=== PATIENT | male | born 1985 | race African-American/Black ===

== ENCOUNTER 2018-10-27 18:06 | Emergency (ER) | payer SELFPAY ==
[2018-10-27] MEDS ORDERED: NORMAL SALINE 1000 ML 1,000 ML IV ONE (18:55)
[2018-10-27] MEDS ORDERED: KETOROLAC TROMETHAMINE INJ/PF 30 MG/1 ML SDV IV ONE ×2 (18:55→23:30)
--- NOTE | 2018-10-27 18:57 | ER Document Report ---
ED Medical Screen (RME) - General Chief Complaint: Urinary Problem Stated Complaint: FLANK PAIN Time Seen by Provider: 10/27/18 18:45 Notes: Patient is a 33-year-old male that presents to the emergency department for chief complaint of left flank pain, hematuria and dysuria. Patient reports having symptoms for a few days now, and they are not improving, describes having significant dysuria, denies urethral discharge but states the blood seems to be mixed with urine. ROS: Other than noted above, the 12 point review of systems was reviewed with the patient and were negative, all pertinent findings are included in the HPI. PHYSICAL EXAMINATION: Vital signs reviewed. GENERAL: Well-appearing, well-nourished and in no acute distress. HEAD: Atraumatic, normocephalic. EYES: Pupils equal round extraocular movements intact, conjunctiva are normal. ENT: Nares patent NECK: Normal range of motion CV: Heart regular rate and rhythm LUNGS: No respiratory distress Musculoskeletal: Normal range of motion NEUROLOGICAL: Normal speech PSYCH: Normal mood, normal affect. MDM: Patient seen and examined for rapid initial assessment. Vital signs reviewed. A comprehensive ED assessment and evaluation of the patient, analysis of test results and completion of the medical decision making process will be conducted by additional ED providers. *Note is created using voice recognition software and may contain spelling, syntax or grammatical errors. TRAVEL OUTSIDE OF THE [place] IN LAST 30 DAYS: No - Related Data Allergies/Adverse Reactions: No Known Allergies Allergy (Unverified 10/27/18 18:38) Past Medical History - Social History Chew tobacco use (# tins/day): No Frequency of alcohol use: Social Drug Abuse: Marijuana Renal/ Medical History: Denies: Hx Peritoneal Dialysis Physical Exam - Vital signs Vitals: Temp Pulse Resp BP Pulse Ox 99.5 F 86 16 139/71 H 100 10/27/18 18:38 10/27/18 18:38 10/27/18 18:38 10/27/18 18:38 10/27/18 18:38 Course - Vital Signs Vital signs: Temp Pulse Resp BP Pulse Ox 99.5 F 86 16 139/71 H 100 10/27/18 18:38 10/27/18 18:38 10/27/18 18:38 10/27/18 18:38 10/27/18 18:38
--- NOTE | 2018-10-27 20:16 | RADIOLOGY REPORT (SQ) ---
CT ABDOMEN PELVIS WITHOUT IV CONTRAST EXAM DATE: 10/27/2018 18:55 HISTORY: Left flank pain. Hematuria. COMPARISON: None. TECHNIQUE: CT scan of the abdomen and pelvis without IV contrast. This exam was performed according to our departmental dose-optimization program, which includes automated exposure control, adjustment of the mA and/or kV according to patient size and/or use of iterative reconstruction technique. FINDINGS: The lung bases are clear. No pleural or pericardial effusions. There is no hiatal hernia. The liver, spleen, pancreas, and adrenal glands are normal. The gallbladder is contracted, limiting evaluation. There are punctate bilateral nonobstructing renal stones. No hydronephrosis or obstructing stones are seen. The pelvic organs are normal. No small bowel obstruction. The appendix is normal. There is no evidence of diverticulitis. No intraperitoneal free fluid or free air is identified. The aorta is normal caliber. No acute osseous findings are appreciated. IMPRESSION: Punctate bilateral nonobstructing renal stones.
[2018-10-27 20:34] LABS: AMORPHOUS SEDIMENT,URINE TRACE /HPF; APPEARANCE,URINE CLOUDY; BILIRUBIN,URINE NEGATIVE (NEGATIVE); COLOR,URINE YELLOW; GLUCOSE, URINE NEGATIVE (NEGATIVE); KETONES,URINE NEGATIVE (NEGATIVE); LEUKOCYTE ESTERASE,URINE LARGE (NEGATIVE); NITRITE,URINE POSITIVE (NEGATIVE); PROTEIN,URINE 100 mg/dL (NEGATIVE); URINE SPECIFIC GRAVITY 1.023; UROBILINOGEN,URINE NEGATIVE mg/dL (<2.0)
[2018-10-27 23:56] LABS: ABSOLUTE EOSINOPHILS # (AUTO) 0.3 10^3/uL (0.0-0.6); ABSOLUTE LYMPHOCYTES (AUTO) 1.2 10^3/uL (0.5-4.7); ABSOLUTE MONOCYTES (AUTO) 0.6 10^3/uL (0.1-1.4); ABSOLUTE NEUT (AUTO) 5.9 10^3/uL (1.7-8.2); BASOPHILS % (AUTO) 0.6 % (0-2); EOSINOPHILS % (AUTO) 3.2 % (0-6); HEMATOCRIT 48.1 % (37.9-51.0); HEMOGLOBIN 16.4 g/dL (13.5-17.0); LYMPHOCYTES % (AUTO) 14.8 % (13-45); MEAN CORPUSCULAR HEMOGLOBIN 25.5 pg (27.0-33.4); MEAN CORPUSCULAR HGB CONC 34.1 g/dL (32.0-36.0); MEAN CORPUSCULAR VOLUME 75 fl (80-97); MONOCYTES % (AUTO) 7.5 % (3-13); PLATELET COUNT 120 10^3/uL (150-450); RED BLOOD COUNT 6.44 10^6/uL (4.35-5.55); RED CELL DISTRIBUTION WIDTH 13.4 % (11.5-14.0); SEGMENTED NEUTROPHILS % (AUTO) 73.9 % (42-78); TOTAL CELLS COUNTED % (AUTO) 100 %
[2018-10-28 00:13] LABS: ALANINE AMINOTRANSFERASE 38 U/L (21-72); ALBUMIN 4.4 g/dL (3.5-5.0); ALKALINE PHOSPHATASE 73 U/L (38-126); ANION GAP 12 (5-19); ASPARTATE AMINO TRANSFERASE 33 U/L (17-59); BILIRUBIN,DIRECT 0.2 mg/dL (0.0-0.4); BILIRUBIN,TOTAL 0.9 mg/dL (0.2-1.3); BLOOD UREA NITROGEN 12 mg/dL (7-20); CALCIUM 9.5 mg/dL (8.4-10.2); CARBON DIOXIDE 26 mmol/L (22-30); CHLORIDE 102 mmol/L (98-107); GLUCOSE 101 mg/dL (75-110); POTASSIUM 3.5 mmol/L (3.6-5.0); SODIUM 139.8 mmol/L (137-145); TOTAL PROTEIN 7.2 g/dL (6.3-8.2)
[2018-10-28] MEDS ORDERED: CEFTRIAXONE INJ 250 MG VIAL IM ONE (01:23)
[2018-10-28] MEDS ORDERED: AZITHROMYCIN 250 MG TABLET PO ONE (01:24)
[2018-10-28] MEDS ORDERED: CEPHALEXIN 500 MG CAPSULE PO ONE (01:24)
--- NOTE | 2018-10-28 01:31 | ER Document Report ---
ED GI/ - General Chief Complaint: Urinary Problem Stated Complaint: FLANK PAIN Time Seen by Provider: 10/27/18 18:45 Notes: Patient is a 33-year-old male presents to the emergency department for dysuria and penile discharge for the last 24 hours. Patient states he also has some generalized suprapubic tenderness. Patient's denying nausea, vomiting, diarrhea, fevers. Initially reported to the [facility] provider patient has a history of kidney stones and has bilateral flank pain. Patient is currently denying any flank or back pain. States he does not have a history of kidney stones. Past medical history: None Medications: None Allergies: None TRAVEL OUTSIDE OF THE [place] IN LAST 30 DAYS: No - Related Data Allergies/Adverse Reactions: No Known Allergies Allergy (Unverified 10/27/18 18:38) Past Medical History - General Information source: Patient - Social History Smoking Status: Current Every Day Smoker Chew tobacco use (# tins/day): No Frequency of alcohol use: Social Drug Abuse: Marijuana Family History: Reviewed & Not Pertinent Patient has suicidal ideation: No Patient has homicidal ideation: No Renal/ Medical History: Denies: Hx Peritoneal Dialysis Review of Systems - Review of Systems Constitutional: No symptoms reported EENT: No symptoms reported Cardiovascular: No symptoms reported Respiratory: No symptoms reported Gastrointestinal: See HPI Genitourinary: See HPI Male Genitourinary: See HPI Musculoskeletal: No symptoms reported Skin: No symptoms reported Hematologic/Lymphatic: No symptoms reported Neurological/Psychological: No symptoms reported Physical Exam - Vital signs Vitals: Temp Pulse Resp BP Pulse Ox 99.5 F 86 16 139/71 H 100 10/27/18 18:38 10/27/18 18:38 10/27/18 18:38 10/27/18 18:38 10/27/18 18:38 - Notes Notes: GENERAL: Alert, interacts well. No acute distress. HEAD: Normocephalic, atraumatic. EYES: Pupils equal, round, and reactive to light. Extraocular movements intact. ENT: Oral mucosa moist, tongue midline. NECK: Full range of motion. Supple. Trachea midline. LUNGS: Clear to auscultation bilaterally, no wheezes, rales, or rhonchi. No respiratory distress. HEART: Regular rate and rhythm. No murmur ABDOMEN: Soft, Non-distended. Bowel sounds present in all 4 quadrants. Minor suprapubic tenderness noted EXTREMITIES: Moves all 4 extremities spontaneously. No edema, normal radial and dorsalis pedis pulses bilaterally. No cyanosis. BACK: no cervical, thoracic, lumbar midline tenderness. No saddle anesthesia, normal distal neurovascular exam. No CVA tenderness noted bilaterally NEUROLOGICAL: Alert and oriented x3. Normal speech. cranial nerves II through XII grossly intact PSYCH: Normal affect, normal mood. SKIN: Warm, dry, normal turgor. No rashes or lesions noted. 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 Course - Re-evaluation Re-evalutation: 10/28/18 01:32 Patient's labs show no signs of leukocytosis, positive signs of urinary tract infection. Patient's gonorrhea and chlamydia are pending has been prophylactically treated in the emergency room. Patient CT abdomen pelvis was ordered by RME provider. Shows punctuate bilateral renal stones nonobstructing. Patient afebrile, non-tachycardic, stable for discharge. - Vital Signs Vital signs: Temp Pulse Resp BP Pulse Ox 98.0 F 76 16 157/85 H 97 10/28/18 00:26 10/28/18 00:26 10/28/18 00:26 10/28/18 00:26 10/28/18 00:26 - Laboratory Result Diagrams: 10/27/18 23:35 10/27/18 23:35 Laboratory results interpreted by me: 10/27/18 10/27/18 10/27/18 20:00 23:35 23:35 RBC 6.44 H MCV 75 L MCH 25.5 L Plt Count 120 L Potassium 3.5 L Urine Protein 100 H Urine Blood LARGE H Urine Nitrite POSITIVE H Ur Leukocyte Esterase LARGE H Discharge - Discharge Clinical Impression: Penile discharge Urinary tract infection Qualifiers: Urinary tract infection type: acute cystitis Hematuria presence: with hematuria Qualified Code(s): N30.01 - Acute cystitis with hematuria Condition: Stable Disposition: HOME, SELF-CARE Instructions: Urinary Tract Infection ([facility]), Gonorrhea ([facility]), Chlamydia ([facility]) Additional Instructions: You have been seen and treated in the emergency department for a urinary tract infection. You have also been prophylactically treated for gonorrhea and chlamydia due to your penile discharge. Please make sure you take antibiotics as prescribed. Please follow-up with medical records to get your gonorrhea and Chlamydia testing results. Please return to the emergency room for any other concerning symptoms. Prescriptions: Cephalexin Monohydrate [Keflex 500 mg Capsule] 500 mg PO BID 7 Days #14 capsule Referrals: [facility] ([place], [place]) [Provider Group] - Follow up as needed
[2018-10-28] MEDS ORDERED: PHENAZOPYRIDINE HCL 200 MG TABLET PO ONE (01:52)
[2018-10-28 02:01] LABS: CHLAM PCR NOT DETECTED (NOT DETECT); GON PCR NOT DETECTED (NOT DETECT)
[2018-10-28 02:04] VITALS: BP 159/96
== END 2018-10-28 02:03 | disposition home or self-care (01) ==
LOC: ER 18:06
DX: N30.01 Acute cystitis with hematuria (principal); R36.9 Urethral discharge, unspecified; N48.89 Other specified disorders of penis; F17.200 Nicotine dependence, unspecified, uncomplicated
CPT/HCPCS: 99284; 96372; 96361; 96374; 36415; 85025; 80053; 81001; 87491; 87591; 74176; J1885; J3490; J7030; J0696

== ENCOUNTER 2018-11-12 19:21 | Emergency (ER) | payer SELFPAY ==
--- NOTE | 2018-11-12 21:03 | ER Document Report ---
ED Medical Screen (RME) - General Chief Complaint: Pain With Urination Stated Complaint: PAINFUL URINATION Time Seen by Provider: 11/12/18 21:00 Mode of Arrival: Ambulatory Information source: Patient Notes: Patient presents to the emergency department with complaints of pain when he voids noted blood in his urine and lower abdominal pain. Patient reports he was treated for UTI 2 weeks ago when he was here. He denies testicular pain. He reports he was evaluated with STD check and CT. Denies nausea vomiting fever but reports some diarrhea I have greeted and performed a rapid initial assessment of this patient. A comprehensive ED assessment and evaluation of the patient, analysis of test results and completion of the medical decision making process will be conducted by additional ED providers. Dictation of this chart was performed using voice recognition software; therefore, there may be some unintended grammatical errors. TRAVEL OUTSIDE OF THE [place] IN LAST 30 DAYS: No - Related Data Allergies/Adverse Reactions: No Known Allergies Allergy (Verified 11/12/18 19:25) Past Medical History - Social History Chew tobacco use (# tins/day): No Frequency of alcohol use: Social Drug Abuse: Marijuana Renal/ Medical History: Denies: Hx Peritoneal Dialysis Physical Exam - Vital signs Vitals: Temp Pulse Resp BP Pulse Ox 99.3 F 105 H 16 134/76 H 93 11/12/18 19:34 11/12/18 19:34 11/12/18 19:34 11/12/18 19:34 11/12/18 19:34 Course - Vital Signs Vital signs: Temp Pulse Resp BP Pulse Ox 99.3 F 105 H 16 134/76 H 93 11/12/18 19:34 11/12/18 19:34 11/12/18 19:34 11/12/18 19:34 11/12/18 19:34
[2018-11-12 22:28] LABS: ABSOLUTE EOSINOPHILS # (AUTO) 0.2 10^3/uL (0.0-0.6); ABSOLUTE LYMPHOCYTES (AUTO) 0.9 10^3/uL (0.5-4.7); ABSOLUTE MONOCYTES (AUTO) 0.5 10^3/uL (0.1-1.4); ABSOLUTE NEUT (AUTO) 3.9 10^3/uL (1.7-8.2); BASOPHILS % (AUTO) 0.9 % (0-2); EOSINOPHILS % (AUTO) 3.4 % (0-6); HEMATOCRIT 47.4 % (37.9-51.0); HEMOGLOBIN 16.2 g/dL (13.5-17.0); LYMPHOCYTES % (AUTO) 16.7 % (13-45); MEAN CORPUSCULAR HEMOGLOBIN 25.7 pg (27.0-33.4); MEAN CORPUSCULAR HGB CONC 34.3 g/dL (32.0-36.0); MEAN CORPUSCULAR VOLUME 75 fl (80-97); MONOCYTES % (AUTO) 9.4 % (3-13); PLATELET COUNT 107 10^3/uL (150-450); RED BLOOD COUNT 6.31 10^6/uL (4.35-5.55); RED CELL DISTRIBUTION WIDTH 13.8 % (11.5-14.0); SEGMENTED NEUTROPHILS % (AUTO) 69.6 % (42-78); TOTAL CELLS COUNTED % (AUTO) 100 %; WHITE BLOOD COUNT 5.6 10^3/uL (4.0-10.5)
[2018-11-12 22:37] LABS: APPEARANCE,URINE CLOUDY; BILIRUBIN,URINE NEGATIVE (NEGATIVE); COLOR,URINE YELLOW; GLUCOSE, URINE NEGATIVE (NEGATIVE); KETONES,URINE NEGATIVE (NEGATIVE); LEUKOCYTE ESTERASE,URINE LARGE (NEGATIVE); NITRITE,URINE NEGATIVE (NEGATIVE); PROTEIN,URINE 100 mg/dL (NEGATIVE); URINE SPECIFIC GRAVITY 1.015; UROBILINOGEN,URINE NEGATIVE mg/dL (<2.0)
[2018-11-12 22:44] LABS: ALANINE AMINOTRANSFERASE 42 U/L (21-72); ALBUMIN 4.5 g/dL (3.5-5.0); ALKALINE PHOSPHATASE 71 U/L (38-126); ANION GAP 10 (5-19); ASPARTATE AMINO TRANSFERASE 31 U/L (17-59); BILIRUBIN,DIRECT 0.2 mg/dL (0.0-0.4); BILIRUBIN,TOTAL 0.7 mg/dL (0.2-1.3); BLOOD UREA NITROGEN 13 mg/dL (7-20); CALCIUM 9.9 mg/dL (8.4-10.2); CARBON DIOXIDE 27 mmol/L (22-30); CHLORIDE 104 mmol/L (98-107); GLUCOSE 91 mg/dL (75-110); POTASSIUM 4.1 mmol/L (3.6-5.0); SODIUM 140.9 mmol/L (137-145); TOTAL PROTEIN 7.4 g/dL (6.3-8.2)
[2018-11-12 23:56] LABS: CHLAM PCR NOT DETECTED (NOT DETECT); GON PCR NOT DETECTED (NOT DETECT)
--- NOTE | 2018-11-13 02:00 | ER Document Report ---
ED General - General Chief Complaint: Pain With Urination Stated Complaint: PAINFUL URINATION Time Seen by Provider: 11/13/18 02:00 Primary Care Provider: BRENDA LOWE MD [NO LOCAL MD] - Follow up as needed Mode of Arrival: Ambulatory Information source: Patient Notes: HISTORY OF PRESENT ILLNESS: Patient is a 33-year-old male with a past medical history of urinary tract infection less than 1 month ago who presents with recurrent dysuria that began several days ago that he reports is identical to his previous symptoms. He denies penile discharge, also denies known history of gonorrhea or chlamydia. Location: Genital Onset: 3-4 days ago Provocation: Relation Quality: Burning Radiation: None Severity: Mild Timing: Intermittent Associated symptoms: No fevers or chills, no pain or swelling of the penis, no lesions or rashes REVIEW OF SYSTEMS: CONSTITUTIONAL : Denies fever or chills, no sweats. Denies recent illness. EENT: Denies eye, ear, throat, or mouth pain or symptoms. Denies nasal or sinus congestion. CARDIOVASCULAR: Denies chest pain. RESPIRATORY: Denies cough, cold, or chest congestion. Denies shortness of breath, difficulty breathing, or wheezing. GASTROINTESTINAL: Denies abdominal pain. Denies nausea, vomiting, or diarrhea. Denies constipation. GENITOURINARY: Positive for painful urination/burning. Denies increased frequen cy or hematuria. MUSCULOSKELETAL: Denies neck or back pain or joint pain or swelling. SKIN: Denies rash or skin lesions. HEMATOLOGIC : Denies easy bruising or bleeding. LYMPHATIC: Denies swollen, enlarged glands. NEUROLOGICAL: Denies altered mental status or loss of consciousness. Denies headache. Denies weakness or paralysis or loss of use of either side. Denies problems with gait or speech. Denies sensory or motor loss. PSYCHIATRIC: Denies anxiety or stress or depression. All other systems reviewed and negative. PHYSICAL EXAMINATION: GENERAL: Well-appearing, well-nourished and in no acute distress. HEAD: Atraumatic, normocephalic. No scalp deformity, depression, or crepitance. EYES: Pupils are 3 mm and equal/round/reactive to light, extraocular movements intact, sclera anicteric, conjunctiva are normal. ENT: Nares patent bilaterally, oropharynx clear without exudates or palatal petechia. Moist mucous membranes. No tonsil hypertrophy. NECK: Normal range of motion, supple without lymphadenopathy. LUNGS: Breath sounds present, equal, and clear to auscultation bilaterally. No wheezes, rales, or rhonchi. HEART: Regular rate and rhythm without murmurs, rubs, or gallops. 2+ peripheral pulses. Normal capillary refill. ABDOMEN: Soft, nontender, nondistended. Normoactive bowel sounds. No guarding, no rebound. No masses appreciated. BACK: Normal contour, no midline tenderness. Rectal exam deferred. GENITAL: Deferred. EXTREMITIES: Normal range of motion, no pitting or edema. No cyanosis. NEUROLOGICAL: No focal neurological deficits. Moves all extremities sponta neously and on command. PSYCH: Normal mood, normal affect. No suicidal thoughts/ideations. No homi cidal thoughts/ideations. No hallucinations. SKIN: Warm, dry, normal turgor, no rashes or lesions noted. ASSESSMENT AND PLAN: This patient is a 33-year-old male who presents with recurrent episodes of dysuria that could represent recurrent urinary tract infection but also sexually transmitted infection. 1. Urine is positive for nitrite negative UTI, chlamydia/gonorrhea is negative. 2. Will give oral Bactrim and discharged home with return precautions and follow-up with urology. Patient voices both understanding and agreeing with the plan. TRAVEL OUTSIDE OF THE [place] IN LAST 30 DAYS: No - Related Data Allergies/Adverse Reactions: No Known Allergies Allergy (Verified 11/12/18 19:25) Past Medical History - General Information source: Patient - Social History Smoking Status: Current Every Day Smoker Chew tobacco use (# tins/day): No Frequency of alcohol use: Social Drug Abuse: Marijuana Family History: Reviewed & Not Pertinent Patient has suicidal ideation: No Patient has homicidal ideation: No - Past Medical History Cardiac Medical History: Reports: None Pulmonary Medical History: Reports: None EENT Medical History: Reports: None Neurological Medical History: Reports: None Endocrine Medical History: Reports: None Renal/ Medical History: Reports: Other - History of urinary tract infection. Denies: Hx Peritoneal Dialysis Malignancy Medical History: Reports None GI Medical History: Reports: None Musculoskeletal Medical History: Reports None Skin Medical History: Reports None Psychiatric Medical History: Reports: None Traumatic Medical History: Reports: None Infectious Medical History: Reports: None Surgical Hx: Negative Past Surgical History: Reports: None Physical Exam - Vital signs Vitals: Temp Pulse Resp BP Pulse Ox 99.3 F 105 H 16 134/76 H 93 11/12/18 19:34 11/12/18 19:34 11/12/18 19:34 11/12/18 19:34 11/12/18 19:34 Course - Vital Signs Vital signs: Temp Pulse Resp BP Pulse Ox 98.5 F 62 18 134/93 H 100 11/13/18 03:00 11/13/18 03:00 11/13/18 03:00 11/13/18 03:00 11/13/18 03:00 - Laboratory Result Diagrams: 11/12/18 22:00 11/12/18 22:00 Laboratory results interpreted by me: 11/12/18 11/12/18 22:00 22:00 RBC 6.31 H MCV 75 L MCH 25.7 L Plt Count 107 L Urine Protein 100 H Urine Blood MODERATE H Ur Leukocyte Esterase LARGE H Discharge - Discharge Clinical Impression: Urinary tract infection Qualifiers: Urinary tract infection type: acute cystitis Hematuria presence: with hematuria Qualified Code(s): N30.01 - Acute cystitis with hematuria Condition: Good Disposition: HOME, SELF-CARE Instructions: Trimethoprim-Sulfa ([facility]), Urinary Tract Infection ([facility]) Additional Instructions: You have been evaluated in the Emergency Department for a urinary tract infection. While here, you were given antibiotics and it is now safe to be discharged home. Please follow-up with urology as instructed in 1 week to be rechecked. Return to the Emergency Department if you experience the inability to urinate, high fevers, swelling of the penis, drainage from the penis, or any other concerning symptoms. Prescriptions: Phenazopyridine HCl [Pyridium 100 Mg Tablet] 100 mg PO TID #9 tablet Sulfamethoxazole/Trimethoprim [Bactrim Ds Tablet] 1 each PO BID #14 tablet Forms: Return to Work Referrals: BRENDA LOWE MD [NO LOCAL MD] - Follow up as needed Print Language: Romansh
[2018-11-13] MEDS ORDERED: SULFAMETHOXAZOLE/TRIMETHOPRIM 800-160 MG TABLET PO ONE (02:14)
[2018-11-13 03:08] VITALS: BP 134/93
== END 2018-11-13 03:08 | disposition home or self-care (01) ==
LOC: ER 19:21
DX: N30.01 Acute cystitis with hematuria (principal)
CPT/HCPCS: 36415; 80053; 81001; 85025; 87491; 87591; 99283